=== PATIENT | male | born 1985 | race Caucasian/White ===

== ENCOUNTER 2018-07-28 05:04 | Emergency (ER) | payer MEDICAID ==
[~2018-07-28] VITALS: Ht 167.6 cm; Wt 72.6 kg
[2018-07-28 05:08] VITALS: BP 160/90
[2018-07-28] MEDS ORDERED: LIDOCAINE VISCOUS 2% 20 ML UDC PO ONE (05:30)
[2018-07-28] MEDS ORDERED: ALUMINUM HYD/MAG/SIMETHICONE 30 ML UDC PO ONE (05:30)
[2018-07-28] MEDS ORDERED: DICYCLOMINE HCL LIQUID 10 MG/5 ML UDC PO ONE (05:30)
[2018-07-28 05:55] VITALS: BP 155/100
== END 2018-07-28 05:55 | disposition home or self-care (01) ==
LOC: MED 05:04
DX: K29.70 Gastritis, unspecified, without bleeding (principal); F10.10 Alcohol abuse, uncomplicated; F15.10 Other stimulant abuse, uncomplicated; K21.9 Gastro-esophageal reflux disease without esophagitis; Y90.9 Presence of alcohol in blood, level not specified
CPT/HCPCS: 81002; 99283